=== PATIENT | male | born 1975 | race Caucasian/White ===

== ENCOUNTER 2016-07-18 23:00 | Inpatient (IN) | payer OTHER ==
--- NOTE | ~2016-07-18 | DS ---
Unit #: [id number] #: [id number] Patient: MANUEL CARBAJAL [id number] [place] [address] [id number] I MR#: [id number] NAME: MANUEL CARBAJAL ROOM: [facility] Age: 40 Sex: M Admission Date: 07/19/2016 : 1975 Discharge Date: 07/22/2016 Attending Physician: Rama Ventura M.D. Primary Care Physician: Primary Care Physician No DISCHARGE SUMMARY IDENTIFYING DATA Mr. Carbajal is a 40-year-old white male, who was self-referred to the hospital. DISCHARGE DIAGNOSES Psychiatric: Alcohol dependence, moderate and acute withdrawals; alcohol-induced mood disorder. Medical: None. Stressors: Moderate psychosocial stressors. HISTORY OF PRESENT ILLNESS Please see initial psychiatric evaluation for details. PAST PSYCHIATRIC HISTORY Please see initial psychiatric evaluation for details. PAST MEDICAL HISTORY Please see initial psychiatric evaluation for details. HOSPITAL COURSE The patient was admitted to the adult chemical dependency unit at [facility] and was oriented to the hospital environment. Routine p.r.n. medications were initiated, and he was started on alcohol detox protocol and was closely monitored. He was having some significant restlessness, anxiety, and Seroquel was added and gradually titrated up; however, he was having some medical complications and was seen in medical consultation and was sent out to the emergency room and ended up being hospitalized on to medical floor and therefore was discharged from our care. DISCHARGE CONDITION Stable. PROGNOSIS Guarded. Dictated by... Donte Pizarro/yani TD: 09/04/2016 23:30 JOB #: [id number] Unit #: [id number] #: [id number] Patient: MANUEL CARBAJAL DISCHARGE SUMMARY Page 1 of 1 X Rama Ventura MD X DISCHARGE SUMMARY
--- NOTE | ~2016-07-18 | HP ---
Unit #: [id number] #: [id number] Patient: MANUELITO GUZMAN [id number] [place] [address] [id number] I MR#: [id number] NAME: MANUELITO GUZMAN ROOM: [facility] Age: 40 Sex: M Admission Date: 07/19/2016 : 1975 Attending Physician: Rama Ventura M.D. Admitting Physician: Rama Ventura M.D. Primary Care Physician: Primary Care Physician No HISTORY AND PHYSICAL HISTORY OF PRESENT ILLNESS Manuelito is a 40 year old admitted to [facility] because of his abuse of alcohol. PAST MEDICAL HISTORY 1. Long history of alcohol abuse. 2. History of withdrawal seizures. PAST SURGICAL HISTORY Nothing reported. ALLERGIES No known drug allergies. SOCIAL HISTORY He does not smoke. Drinks at least a fifth of liquor on a daily basis. Denies illicit drug use. FAMILY HISTORY Medically noncontributory. REVIEW OF SYSTEMS CONSTITUTIONAL: No fever or chills. HEENT: Denies any sore throat, ear pain or runny nose. CARDIOVASCULAR: Denies chest pain, irregular heart rhythm or palpitations. CHEST: Denies shortness of breath or cough. No hemoptysis. GASTROINTESTINAL: Denies nausea, vomiting, diarrhea or chronic constipation. ENDOCRINE: Denies history of increased thirst or urination. No recent significant weight loss or gain. GENITOURINARY: Denies dysuria, frequency, or hematuria. SKIN: Denies any rashes. HEMATOLOGIC: Denies history of increased bleeding or bruising. MUSCULOSKELETAL: Denies any hot, swollen joints. No generalized muscle pain. NEUROLOGIC: Denies problems with vision or speech. No frequent, severe headaches. No numbness, tingling or weakness in any extremities. Denies loss of bladder or bowel control. CURRENT MEDICATIONS Detox protocol. PHYSICAL EXAMINATION Unit #: [id number] #: [id number] Patient: MANUELITO GUZMAN GENERAL: Alert, well-nourished, in no apparent distress. VITAL SIGNS: Blood pressure 117/72, heart rate 80, respirations 16, temperature 98.6. WEIGHT: 180. HEIGHT: 5 feet 10 inches. SKIN: Warm and dry without rash or lesion. HEENT: Normocephalic. TMs not viewed. Oral and nasal passages clear. Conjunctivae clear. PERRLA. EOMs intact. NECK: Supple without lymphadenopathy or thyromegaly. HEART: Regular rate and rhythm without murmur. LUNGS: Clear. ABDOMEN: Soft, nontender. : Not done. EXTREMITIES: No evidence of cyanosis, clubbing or edema. Moves all without focal deficit. NEUROLOGICAL: Grossly within normal limits. Cranial Nerves: II: Visual drew are intact. III, IV AND : Extraocular movements are intact. Pupils are equal, round and reactive to light. V: Facial sensation is grossly normal. VII: Facial movements and expression are normal. VIII: Auditory acuity grossly intact. IX, X: Uvula is midline. Phonation is normal. XI: Patient shrugs shoulders and turns head normally. XII: Tongue protrudes in the midline. Sensory and Motor Function: Sensory and motor sensation is grossly normal. Motor: moves all extremities well. Coordination: Gait is normal. Deep Tendon Reflexes: Intact. IMPRESSION Psychiatric admission. RECOMMENDATIONS PSYCHIATRIC: Per psychiatrist. MEDICAL: See no contraindications to participate in facility's activities. MEDICAL PROGNOSIS Good. MEDICAL CONDITION Stable. Dictated by... Maite Dubon P.A.-C. for Donte Tillman/gokul TD: 07/19/2016 18:34 JOB #: [id number] Unit #: [id number] #: [id number] Patient: MANUELITO GUZMAN HISTORY AND PHYSICAL Page 1 of 1 X Maite Dubon HISTORY AND PHYSICAL
--- NOTE | ~2016-07-18 | PN ---
Unit #: [id number] #: [id number] Patient: MANUEL GUZMAN [id number] [facility] [address] [place] [address] [id number] I MR#: [id number] NAME: MANUEL GUZMAN ROOM: [facility] Age: 40 Sex: M Admission Date: 07/19/2016 : 1975 Attending Physician: Rama Ventura M.D. Admitting Physician: Rama Ventura M.D. Primary Care Physician: Primary Care Physician Charity KNOX PROGRESS NOTES DATE 07/20/2016 DISCUSSION Mr. Guzman is a 40-year-old white male who was seen today and chart was reviewed and case was discussed with the staff. He has been anxious, withdrawn, rather seclusive to himself and has effectively gone into full blown delirium tremens as of yesterday and as such has been maintaining one-to-one level of precautions and has been unkempt, disheveled, unable to carry on any meaningful conversation and completely out of touch with reality and Ativan has been given quite regularly. However, he has not shown any violent outburst. MENTAL STATUS EXAMINATION Young white male who was casually dressed with poor personal hygiene and appears to be in slight distress and discomfort. He was awake and alert with impaired attention and concentration and was seen to be confused and disoriented to time, place and person. His mood was anxious with congruent affect. His speech is slow and tangential. His thought processes were disorganized with some looseness of associations and flight of ideas. His insight and judgement remains significantly impaired. TREATMENT PLAN 1. Will continue on his current medications and detox protocol and will maintain him on his current level of precautions. 2. Will continue to follow up. Dictated by... Donte Pizarro/gokul TD: 07/20/2016 20:32 JOB #: [id number] Unit #: [id number] #: [id number] Patient: MANUEL GUZMAN PROGRESS NOTES Page 1 of 1 X Rama Ventura MD X PROGRESS NOTE
--- NOTE | ~2016-07-18 | PN ---
Unit #: [id number] #: [id number] Patient: MANUEL GUZMAN [id number] [facility] [address] [place] [address] [id number] I MR#: [id number] NAME: MANUEL GUZMAN ROOM: [facility] Age: 40 Sex: M Admission Date: 07/19/2016 : 1975 Attending Physician: Rama Ventura M.D. Admitting Physician: Rama Ventura M.D. Primary Care Physician: Primary Care Physician Charity KNOX PROGRESS NOTES DATE OF SERVICE: 07/21/2016 SUBJECTIVE Mr. Guzman is a 40-year-old white male, who was seen today and chart was reviewed and case was discussed with the staff. He has been maintained one-to-one level of precaution as an acute DTs and also has developed double he has been confused and anxious and and he was unable to answer any of my questions and had been completely out of touch with reality. MENTAL STATUS EXAMINATION Young white male, who is casually dressed with fair personal hygiene, appears to be in no acute distress or discomfort. He was awake and alert with impaired attention and concentration. His mood was anxious with a congruent affect. His speech was slow and restricted in content. His insight and judgment remain significantly impaired. TREATMENT PLAN We will continue his current medications and treatment protocol. We will monitor his response and make further adjustments as needed. Dictated by... Donte Pizarro/yani TD: 07/21/2016 13:38 JOB #: [id number] KRISTI PROGRESS NOTES Page 1 of 1 X Rama Ventura MD PROGRESS NOTE
--- NOTE | ~2016-07-18 | CO ---
Unit #: [id number] #: [id number] Patient: MANUEL GUZMAN [id number] [facility] [address] [place] [address] [id number] I MR#: [id number] NAME: MANUEL GUZMAN ROOM: [facility] Age: 40 Sex: M Admission Date: 07/19/2016 : 1975 Attending Physician: Rama Ventura M.D. Primary Care Physician: Primary Care Physician No Consultation Date: 07/20/2016 CONSULTATION REPORT ADRIAN Billings is a 40-year-old with history of alcohol abuse and detox seizures. Over the past 48 hours, his condition has deteriorated to the point where he is incontinent of his urine and bladder and has experienced increased vomiting. He has taken little by mouth. Repeat labs were ordered on 07/21/2016. These showed slight improvement in his electrolytes and very minimal improvement in his liver enzymes with increase in his total bilirubin. Lipase was high at 98 and ammonia level at 52. He was sent to [facility] for evaluation and subsequently admitted for further medical care of his detox symptoms. Dictated by... Maite Dubon P.A.-C. for Donte Tillman/yani TD: 07/23/2016 01:26 JOB #: [id number] CONSULTATION REPORT Page 1 of 1 X Maite Dubon CONSULTATION REPORT
--- NOTE | ~2016-07-18 | PA ---
Unit #: [id number] #: [id number] Patient: MANUEL CARBAJAL [id number] [place] [address] [id number] I MR#: [id number] NAME: MANUEL CARBAJAL ROOM: [facility] Age: 40 Sex: M Admission Date: 07/19/2016 : 1975 Date of Assessment: Attending Physician: Rama Ventura M.D. Admitting Physician: Rama Ventura M.D. PSYCHIATRIC ASSESSMENT DATE OF SERVICE 07/19/2016. IDENTIFYING DATA Mr. Carbajal is a 40-year-old white male, who is a resident of [place], [place], and was self-referred to the hospital on a voluntary basis and accompanied by his girlfriend. CHIEF COMPLAINT "I'm a failure to be a good person." HISTORY OF PRESENT ILLNESS Mr. Carbajal is a 40-year-old white male, who was self-referred to the hospital and upon presentation, he stated "I've not been myself for the past 2 weeks." The patient declines to elaborate on what he means by this and reports that he has been drinking a fifth of alcohol daily with the last drink approximately 7 p.m. last night and denied any suicidal ideation. Reports history of withdrawal seizures more recently in April and stated that he was hospitalized at that time at [facility], and does report increasing depression, poor self-esteem, feelings of hopelessness and helplessness, poor energy level, psychomotor retardation, and does report some suicidal ideations, but denies any intent or plan. SUBSTANCE ABUSE HISTORY The patient reports history of alcohol dependence and reports that he has been drinking since he was 19 years old and currently has been drinking a fifth of vodka on daily basis and denies any other substance abuse issues. PAST PSYCHIATRIC HISTORY The patient has had history of inpatient psychiatric hospitalization at [facility], and has been diagnosed and treated for mood disorder. Review of the medical records indicate that currently he is supposed to be on Zoloft and Seroquel, but does not appear to be actively compliant with the treatment recommendations as he is not seeing a psychiatrist. PAST MEDICAL HISTORY The patient's medical history is insignificant. ALLERGIES No known medication allergies. PERSONAL AND SOCIAL HISTORY Unit #: [id number] #: [id number] Patient: MANUEL CARBAJAL A 40-year-old white male, who reports that he is and lives by himself and he is self-employed and has poor social support system. MENTAL STATUS EXAMINATION Young white male who was casually dressed with fair personal hygiene, appears to be in no acute distress or discomfort. He was awake and alert on interaction with intact orientation. His mood was anxious and depressed with a congruent affect. His speech was slow and restricted in content. His thought processes were disorganized with some looseness of associations and suicidal ideations. He denies any auditory or visual hallucinations. His insight and judgment remain significantly impaired. DIAGNOSTIC IMPRESSION Psychiatric: Alcohol dependence, moderate and acute withdrawals; alcohol-induced mood disorder. Medical: None. Stressors: Mild psychosocial stressors. TREATMENT PLAN 1. The patient has presented with history of substance abuse and mood disorder, and has been decompensating and will need inpatient hospitalization for detoxification, safety, and stabilization. We will start him back on his home medications. We will adjust the medications and monitor response. 2. Supportive therapy was provided to the patient. 3. Safe, structured, and nourishing environment will be reported. ESTIMATED LENGTH OF STAY 4 to 5 days. ABILITY TO HELP SELF Limited. WILLINGNESS TO HELP SELF The patient appears to be willing to help self. STRENGTHS 1. Communicative. 2. Cooperative. PROBLEMS 1. Chronic dysphoric symptoms. 2. Chronic chemical dependency. 3. Poor social support system. DISCHARGE CRITERIA This will be contingent upon the patient's ability to go through detox without having any significant withdrawal symptoms as well as his ability to stay safe to himself, particularly after discharge from the hospital. Dictated by... Donte Pizarro/yani TD: 07/19/2016 06:54 JOB #: [id number] Unit #: [id number] #: [id number] Patient: MANUEL CARBAJAL PSYCHIATRIC ASSESSMENT Page 1 of 1 X Rama Ventura MD PSYCHIATRIC ASSESSMENT
[~2016-07-18 23:00] MED LIST: LIBRIUM25 M1 PO; SEROQUEL50 M1 PO; ZOLOFT PO
[2016-07-19 09:49] LABS: BASOPHIL% 0.9 % (0-2.5); EOSINOPHIL% 0.6 % (0.0-7.0); HEMOGLOBIN 13.2 gm/dL (13.0-16.0); LYMPHOCYTE# 0.8 X10e3 (1.0-3.5); LYMPHOCYTE% 24.6 % (17.0-45.0); MEAN CELL VOLUME 104.1 FL (83-96); MEAN CORPUSCULAR HEMOGLOBIN 35.2 PG (28-34); MEAN CORPUSCULAR HGB CONC 33.8 g/dL (30-36); MEAN PLATELET VOLUME 7.6 FL (6.5-11.5); MONOCYTE# 0.4 X10e3 (0-1.0); MONOCYTE% 11.4 % (3.0-12.0); NEUTROPHIL% 62.5 % (40-75); RED BLOOD COUNT 3.74 X10e (3.90-5.60); RED CELL DISTRIBUTION WIDTH 15.5 % (11.0-15.5); WHITE BLOOD COUNT 3.2 X10e3 (4.0-10.5)
[2016-07-19 10:04] LABS: THYROID STIMULATING HORMONE 1.63 uIU/ml (0.34-5.60)
[2016-07-19 10:10] LABS: FREE THYROXIN (T4) 0.81 ng/dL (0.58-1.64)
[2016-07-19 10:21] LABS: ALBUMIN SERUM 3.8 g/dL (3.5-5.0); CALCIUM SERUM 8.1 mg/dL (8.4-10.2); CREATININE SERUM 0.5 mg/dL (0.6-1.4); GLOM FILT RATE Estimated 136.6 mL/min (>60); POTASSIUM 3.1 mmol/L (3.5-5.1); PROTEIN TOTAL SERUM 6.9 g/dL (6.0-8.3)
[2016-07-19 11:48] LABS: PLATELET COUNT 61 X10e3 (140-420)
[2016-07-19 11:49] LABS: DIFF IND YES
[2016-07-19 11:57] LABS: PLATELET ESTIMATE DECREASED (NORMAL)
[2016-07-19 11:58] LABS: ANISOCYTOSIS MOD
[2016-07-20 09:49] LABS: URINE APPEARANCE CLEAR; URINE BLOOD 1+ (NEG); URINE COLOR DK YELLOW; URINE GLUCOSE NEG (NEG); URINE KETONE TRACE (NEG); URINE LEUKOCYTE ESTERASE TRACE (NEG); URINE NITRATE NEG (NEG); URINE PH 6.5 (5-8); URINE PROTEIN 3+ (NEG); URINE SPECIFIC GRAVITY 1.016 (1.003-1.035)
[2016-07-20 09:55] LABS: URINE BACTERIA AUWI NEG (NEGATIVE); URINE SQUAMOUS EPITHELIAL CELL OCC /[HPF]
[2016-07-20 10:06] LABS: URINE BILIRUBIN NEG (NEG)
[2016-07-20 10:08] LABS: URBCS1 AUWI 0-2 /[HPF] (0-2)
[2016-07-20 11:19] LABS: AMPHETAMINE NEG (NEG); BARBITURATES NEG (NEG); BENZODIAZEPINES POS (NEG); COCAINE NEG (NEG); MARIJUANA NEG (NEG); OPIATES NEG (NEG); TRICYCLIC ANTIDEPRESSANTS NEG (NEG); U METHADONE NEG (NEG)
[2016-07-21 16:11] LABS: BASOPHIL% 1.2 % (0-2.5); EOSINOPHIL# 0.1 X10e3 (0-0.7); EOSINOPHIL% 1.8 % (0.0-7.0); HEMATOCRIT 37.9 % (38.0-50.0); HEMOGLOBIN 12.8 gm/dL (13.0-16.0); LYMPHOCYTE# 0.8 X10e3 (1.0-3.5); LYMPHOCYTE% 22.1 % (17.0-45.0); MEAN CELL VOLUME 105.5 FL (83-96); MEAN CORPUSCULAR HEMOGLOBIN 35.6 PG (28-34); MEAN CORPUSCULAR HGB CONC 33.7 g/dL (30-36); MEAN PLATELET VOLUME 8.7 FL (6.5-11.5); MONOCYTE# 0.7 X10e3 (0-1.0); MONOCYTE% 18.5 % (3.0-12.0); NEUTROPHIL# 2.1 X10e3 (1.5-7.1); NEUTROPHIL% 56.4 % (40-75); RED CELL DISTRIBUTION WIDTH 15.4 % (11.0-15.5); WHITE BLOOD COUNT 3.6 X10e3 (4.0-10.5)
[2016-07-21 16:16] LABS: ALBUMIN SERUM 4.2 g/dL (3.5-5.0); BILIRUBIN,TOTAL 2.1 mg/dL (0.2-2.0); BUN/CREATININE RATIO 12.22; CALCIUM SERUM 9.3 mg/dL (8.4-10.2); CREATININE SERUM 0.9 mg/dL (0.6-1.4); GLOM FILT RATE Estimated 107.2 mL/min (>60); POTASSIUM 3.3 mmol/L (3.5-5.1); PROTEIN TOTAL SERUM 7.3 g/dL (6.0-8.3)
[2016-07-21 16:29] LABS: DIFF IND NO; PLATELET COUNT 79 X10e3 (140-420)
== END 2016-07-22 01:48 | DRG 897 ==
LOC: P1E 07-19 00:59
PROVIDERS: Psychiatry & Neurology Psychiatry
PROC: HZ2ZZZZ Detoxification Services for Substance Abuse Treatment (ICD-10-PCS; principal; 2016-07-19)
DX: F10.239 Alcohol dependence with withdrawal, unspecified (principal); F10.24 Alcohol dependence with alcohol-induced mood disorder
CPT/HCPCS: 80053; 80307; 81003; 82140; 83690; 84439; 84443; 85025; J2060; J2550